=== PATIENT | female | born 1955 | race Caucasian/White ===

== ENCOUNTER 2021-06-14 05:47 | Emergency (ER) | payer MEDICARE ==
[~2021-06-14] VITALS: Ht 157.5 cm; Wt 40.0 kg
[2021-06-14 05:50] VITALS: BP 125/82
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
== END 2021-06-14 07:54 | disposition home or self-care (01) ==
LOC: EDBD 05:47 → ER 05:47
DX: S02.32XA Fracture of orbital floor, left side, initial encounter for closed fracture (principal); X58.XXXA Exposure to other specified factors, initial encounter; Y93.89 Activity, other specified; Y92.89 Other specified places as the place of occurrence of the external cause; Y99.8 Other external cause status
CPT/HCPCS: 70450; 70486; 72125; 99285-25